=== PATIENT | male | born 1985 | race Two or more races ===

== ENCOUNTER 2023-11-20 06:25 | Outpatient (REF) | payer BC, SELFPAY ==
--- NOTE | ~2023-11-20 | US_ITS ---
ULTRASOUND SOFT TISSUES RIGHT UPPER EXTREMITY CLINICAL: Palpable lump in the mid to posterior right upper arm. COMPARISON: None. TECHNIQUE: Using a linear array transducer with grayscale and color modalities, ultrasound examination is performed of the area of clinical concern in the mid right upper arm. FINDINGS: A 2.0 x 0.5 x 2.0 cm homogeneously hyperechoic, circumscribed, subcutaneous mass is seen, which corresponds with the palpable finding. There is no associated color Doppler flow or change in through sound transmission. The adjacent cutaneous, subcutaneous, muscular and fascial planes are unremarkable. No fluid collection is seen. There is no lymphadenopathy. No foreign body is seen. US/US extremity nonvascular schwartz IMPRESSION: Corresponding with the palpable finding, a 2.0 cm hyperechoic, circumscribed mass is seen within the mid right upper arm subcutaneous layer. The possibility of a lipoma is raised; the exact etiology is indeterminate. If of continued clinical concern, this can be further evaluated with MRI.
--- NOTE | ~2023-11-20 | US_ITS ---
EXAMINATION: US ABDOMEN LIMITED CLINICAL INFORMATION: Focal palpable masses bilateral flank regions. COMPARISON: None available. TECHNIQUE: Real-time imaging of the right and left flank regions. FINDINGS: Multiple echogenic subcutaneous masses are seen in the bilateral flank regions. The largest on the right measure 1.7 x 1.5 x 2.0 cm, 1.2 x 1.1 x 0.9 cm and 0.7 x 1.0 x 0.7 cm. The largest on the left measure 0.8 x 0.7 x 1.2 cm, 1.1 x 0.8 x 1.4 cm and 0.4 x 0.8 x 0.8 cm. No fluid collection is seen. No lymphadenopathy is noted. There is no foreign body. US/US abdomen limited IMPRESSION: Multiple echogenic masses are seen within the bilateral flank subcutaneous layers, corresponding with palpable lumps noted by the patient. The possibility of lipomas is raised; exact etiology is indeterminate. If of continued clinical concern, these can be further evaluated with MRI.
== END 2023-11-20 06:26 | disposition home or self-care (01) ==
LOC: HO.UMASIMG 06:25
PROVIDERS: Visit Provider Family Medicine
DX: R22.2 Localized swelling, mass and lump, trunk (principal); R22.1 Localized swelling, mass and lump, neck; R22.31 Localized swelling, mass and lump, right upper limb
CPT/HCPCS: 76705; 76882